=== PATIENT | male | born 1955 | race Caucasian/White ===

== ENCOUNTER 2017-08-14 22:26 | Emergency (ER) | payer OTHER ==
[~2017-08-14] VITALS: Ht 182.9 cm; Wt 107.6 kg
[2017-08-14 22:44] VITALS: BP 162/87; PULSE 102; RESP 18; TEMP 98.8; O2SAT 97
[2017-08-14] MEDS ORDERED: ATOR10TA15 PO (23:24)
[2017-08-14] MEDS ORDERED: LEVO75TA3 PO (23:24)
--- NOTE | 2017-08-14 23:41 | PD ---
HPI Chief Complaint: Bite or Sting Time Seen by Provider: 23:40 Travel History International Travel<30 days: No Contact w/Intl Traveler<30days: No Traveled to known affect area: No History of Present Illness HPI 61-year-old male presents to the emergency department after abrasion sustained from altercation with pit bull just prior to arrival to the emergency department. Patient does not know his tetanus status. Patient is not on any blood thinning agents. Patient's dog was attacked by the pit bull and pitbull evp marketing identified patient to be current on all immunizations. [facility], LATER [facility] Past Medical History Narrative Medical Dyslipidemia; nursing notes reviewed High Cholesterol: Yes Diminished Hearing: No Musculoskeletal: Yes (back injury) Thyroid Disease: Yes Tetanus Vaccination: Unknown Influenza Vaccination: No Social History Alcohol Use: No Tobacco Use: No Substance Use: No Allergies-Medications (Allergen,Severity, Reaction): Coded Allergies: No Known Allergies (Verified Allergy, Unknown, 08/14/17) Reported Meds & Prescriptions Reported Meds & Active Scripts Active Augmentin (Amoxicillin-Clavulanate) 875-125 Mg Tab 1 Tab PO BID 10 Days Reported Levothyroxine (Levothyroxine Sodium) 75 Mcg Tab 75 Mcg PO DAILY Atorvastatin (Atorvastatin Calcium) 10 Mg Tab 10 Mg PO HS Review of Systems Except as stated in HPI: all other systems reviewed are Neg Physical Exam Narrative GENERAL: Well-developed well-nourished male no acute distress or respiratory distress SKIN: Warm and dry. HEAD: Normocephalic. EYES: No scleral icterus. No injection or drainage. NECK: Supple, trachea midline. No JVD or lymphadenopathy. CARDIOVASCULAR: Regular rate and rhythm without murmurs, gallops, or rubs. RESPIRATORY: Breath sounds equal bilaterally. No accessory muscle use. GASTROINTESTINAL: Abdomen soft, non-tender, nondistended. MUSCULOSKELETAL: No cyanosis, or edema. Superficial abrasions to the lower extremities BACK: Nontender without obvious deformity. No CVA tenderness. Data Data Last Documented VS Vital Signs Date Time Temp Pulse Resp B/P (MAP) Pulse Ox O2 Delivery O2 Flow Rate FiO2 08/15/17 01:01 84 18 97 08/15/17 01:00 Room Air 08/14/17 22:44 98.8 Orders Orders Tetanus/Diphtheria Tox Adult (Tetanus/Di (08/14/17 23:45) Amoxicil-Clavulanate (Augmentin) (08/14/17 23:45) Wound Care (08/14/17 23:40) MDM Medical Decision Making Medical Screen Exam Complete: Yes Emergency Medical Condition: Yes Medical Record Reviewed: Yes Differential Diagnosis Dog bite, puncture wound, retained foreign body Narrative Course Patient identified to have multiple abrasions secondary to dog bite attack wound sites cleansed tetanus status updated and first dose of antibiotic administered Augmentin 875 mg Diagnosis Primary Impression: Dog bite of multiple sites Referrals: Primary Care Physician 2 days Patient Instructions: General Instructions Additional Instructions: Keep wound site clean and dry Follow-up with your primary care provider Complete course of antibiotic as prescribed Take acetaminophen or ibuprofen per package directions as needed for fever 100.4 F or greater or for pain Return to the emergency department for any concerns Med/Other Pt SpecificInfo: Prescription(s) given Scripts Amoxicillin-Clavulanate (Augmentin) 875-125 Mg Tab 1 TAB PO BID for Infection for 10 Days, #20 TAB 0 Refills Prov: Marita Kaba MD 08/15/17 Disposition: 01 DISCHARGE HOME Condition: Stable Marita Kaba MD Aug 14, 2017 23:41
[2017-08-14] MEDS ORDERED: TETANUS/DIPHTHERIA TOXOID ADULT 0.5 ML VIAL IM ONE (23:45)
[2017-08-14] MEDS ORDERED: AMOXICILLIN/CLAVULANATE K 875 MG TAB PO ONE (23:45)
[2017-08-15] MEDS ORDERED: AUGM875T3 PO (00:50)
[2017-08-15 01:00] VITALS: BP 156/82; PULSE 84; RESP 18; O2SAT 97
== END 2017-08-15 01:13 | disposition home or self-care (01) ==
LOC: PHED 22:26
DX: T14.8XXA Other injury of unspecified body region, initial encounter (principal); E78.00 Pure hypercholesterolemia, unspecified; W54.0XXA Bitten by dog, initial encounter; Z23 Encounter for immunization
CPT/HCPCS: 90471; 90714